=== PATIENT | male | born 1955 | race Caucasian/White ===

== ENCOUNTER 2016-12-16 15:55 | Emergency (ER) | payer BC ==
[2016-12-16] MEDS ORDERED: DIPH/PERTUSS(ACELL)/TETANUS VAC/PF 0.5 ML SYR (>=10YO) IM ONE (16:43)
--- NOTE | 2016-12-16 16:45 | ER Document Report ---
ED Medical Screen (RME) - General Chief Complaint: Laceration Stated Complaint: POSSIBLE CUT ON ANKLE Mode of Arrival: Ambulatory Information source: Patient Notes: 61 y/o M presents to ED c/o left ankle laceration and pain. States struck lower leg on metal bed frame this morning. Denies deformity or color changes. I have greeted and performed a rapid initial assessment of this patient. A comprehensive ED assessment and evaluation of the patient, analysis of test results and completion of the medical decision making process will be conducted by additional ED providers. - Related Data Allergies/Adverse Reactions: No Known Allergies Allergy (Unverified 12/16/16 16:42) Past Medical History Renal/ Medical History: Denies: Hx Peritoneal Dialysis Physical Exam - Vital signs Vitals: Temp Pulse Resp BP Pulse Ox 98.4 F 62 16 145/83 H 98 12/16/16 16:40 12/16/16 16:40 12/16/16 16:40 12/16/16 16:40 12/16/16 16:40 - General General appearance: Appears well, Alert In distress: None Course - Vital Signs Vital signs: Temp Pulse Resp BP Pulse Ox 98.4 F 62 16 145/83 H 98 12/16/16 16:40 12/16/16 16:40 12/16/16 16:40 12/16/16 16:40 12/16/16 16:40
--- NOTE | 2016-12-16 19:55 | ER Document Report ---
ED Wound - General Chief Complaint: Laceration Stated Complaint: POSSIBLE CUT ON ANKLE Mode of Arrival: Ambulatory Information source: Patient - HPI Patient complains to provider of: Laceration Occurred: Just prior to arrival Onset/Duration: Sudden Quality of pain: Sharp Severity: Mild Context: Injury - STRUCK ANKLE AGAINST SHARP CORNER OF METAL BED FRAME. Skin Temperature: Warm Skin Color: Normal Capillary refill: < 3 seconds Sensations intact: Yes Distal pulses present: Yes - DP PULSE STRONG Associated Symptoms: None Notes: Patient describes profuse pulsatile bleeding immediately after injury. Says he put a makeshift bandage on the wound and went to one of the urgent care clinics [facility], where he was told he needed to seek wound repair at the emergency department because of arterial damage. He was given a tetanus booster at the clinic before being transported to the ED by EMS. - Related Data Allergies/Adverse Reactions: No Known Allergies Allergy (Verified 12/16/16 20:33) Past Medical History - General Information source: Patient - Social History Smoking Status: Never Smoker Frequency of alcohol use: Rare Drug Abuse: None Lives with: Family Family History: Reviewed & Not Pertinent Patient has suicidal ideation: No Patient has homicidal ideation: No - Past Medical History Cardiac Medical History: Reports: Hx Hypertension Pulmonary Medical History: Reports: None EENT Medical History: Reports: None Neurological Medical History: Reports: None Endocrine Medical History: Reports: None Renal/ Medical History: Reports: None. Denies: Hx Peritoneal Dialysis Malignancy Medical History: Reports None GI Medical History: Reports: None Musculoskeltal Medical History: Reports None Skin Medical History: Reports None Psychiatric Medical History: Reports: None Surgical Hx: Negative Review of Systems - Review of Systems Constitutional: No symptoms reported EENT: No symptoms reported Cardiovascular: No symptoms reported. denies: Syncope, Lightheaded Respiratory: No symptoms reported Gastrointestinal: No symptoms reported Genitourinary: No symptoms reported Musculoskeletal: No symptoms reported Skin: See HPI Neurological/Psychological: No symptoms reported Physical Exam - Vital signs Vitals: Temp Pulse Resp BP Pulse Ox 98.4 F 65 16 145/83 H 97 12/16/16 16:20 12/16/16 16:20 12/16/16 16:20 12/16/16 16:20 12/16/16 16:20 Interpretation: Hypertensive. No: Tachycardic, Tachypneic - General General appearance: Appears well, Alert In distress: None - HEENT Head: Normocephalic Eyes: Normal Conjunctiva: Normal Ears: Normal Nasal: Normal Mouth/Lips: Normal Mucous membranes: Normal Neck: Normal - Respiratory Respiratory status: No respiratory distress - Cardiovascular Rhythm: Regular - Abdominal Inspection: Normal Distension: No distension - Extremities General upper extremity: Normal inspection General lower extremity: No: Normal inspection - R. ANKLE LAC. (SEE BELOW) Ankle: Laceration - 1.8 cm, TRANSVERSELY OVER DISTAL TIP OF LEFT FIBULA - Neurological Neuro grossly intact: Yes Cognition: Normal Orientation: AAOx4 - Psychological Associated symptoms: Normal affect, Normal mood - Skin Skin Temperature: Warm Skin Moisture: Dry Skin Color: Normal Skin Turgor: Elastic Course - Vital Signs Vital signs: Temp Pulse Resp BP Pulse Ox 97.4 F 61 14 144/94 H 95 12/16/16 21:08 12/16/16 21:08 12/16/16 21:08 12/16/16 21:08 12/16/16 21:08 Procedures - Laceration/Wound Repair Left Ankle Time completed: 20:45 Wound length (cm): 1.8 Wound's Depth, Shape: Superficial Laceration pre-procedure: Betadine prep applied Anesthetic type: 2% Lidocaine Wound explored: Clean, No foreign body removed Irrigated w/ Saline (mLs): 30 Wound Debrided: Minimal Wound Repaired With: Sutures Suture Size/Type: 4:0, Nylon Number of Sutures: 3 - 1 SIMPLE + 1 PAIR HORIZ. MATTRESS Layer Closure?: No Post-procedure wound care: Sterile dressing applied Post-procedure NV exam normal: Yes Complications: No Notes: 12/16/16 20:51 SMALL AMOUNT APPARENT VENOUS BLEEDING NOTED. Adult Front & Back picture: 1 - LACERATION, SUTURED Discharge - Discharge Clinical Impression: Laceration of ankle Qualifiers: Encounter type: initial encounter Laterality: left Qualified Code(s): S91.012A - Laceration without foreign body, left ankle, initial encounter Condition: Stable Disposition: HOME, SELF-CARE Instructions: Laceration Care ([facility]), Soap Cleansing ([facility]), Elevate the Injury ( [facility]) Additional Instructions: STAY OF FEET AND KEEP LEFT LEG ELEVATED MUCH POSSIBLE NEXT 48 HOURS. FOLLOW UP FOR SUTURE REMOVAL IN 10-12 DAYS. RETURN TO E.R. IF PROBLEMS, ANY TIME. Referrals: DEREJE CHOU PA-C [Primary Care Provider] - Follow up as needed
[2016-12-16] MEDS ORDERED: LIDOCAINE 2% INJ (20 MG/ML) 20 ML MDV INJ ONE (20:01)
[2016-12-16 21:14] VITALS: BP 144/94
== END 2016-12-16 21:10 | disposition home or self-care (01) ==
LOC: ER 15:55
PROC: 0HQNXZZ Repair Left Foot Skin, External Approach (ICD-10-PCS; principal; 2016-12-16)
DX: S91.012A Laceration without foreign body, left ankle, initial encounter (principal); W22.03XA Walked into furniture, initial encounter; I10 Essential (primary) hypertension; Z23 Encounter for immunization
CPT/HCPCS: 99283; 73610; 90715; 12001; J3490

== ENCOUNTER 2017-10-09 08:31 | Day surgery (SDC) | payer BC ==
[~2017-10-09 08:31] MED LIST: CHONDR SU A NA/HYALUR INTRAOC KIT (SURGICARE) ONE; KETOROLAC TROMETHAMINE 0.45% 4 DROP/0.4 ML DROPERETTE OS PRN; LIDOCAINE 1% INJ-PF (10 MG/ML) 30 ML SDV ONE; MIDAZOLAM 2 MG/2 ML INJ ONE; PHENYLEPHRINE/KETOROLAC 1%-0.3% 4 ML VIAL ONE; TOBRAMYCIN SULFATE/DEXAMETH OPH OINTMENT 3.5 GM ONE
[2017-10-09] MEDS: TETRACAINE HCL 0.5% OPH SOLN 0.6 ML DROPERETTE OS PRN ×3 (09:24→10:47)
[2017-10-09] MEDS: BESIFLOXACIN HCL 0.6% OPH SUSP 5 ML BOTTLE OS PRN ×3 (09:25→10:47)
[2017-10-09] MEDS: CYCLOPENTOLATE 0.2%/PHENYLEPHRINE 1% OPH SOLN 2 ML OS PRN ×3 (09:25→09:49)
[2017-10-09] MEDS: TROPICAMIDE 1% OPH SOLN 3 ML OS PRN ×3 (09:25→09:49)
[2017-10-09] MEDS ORDERED: MIDAZOLAM 2 MG/2 ML INJ ONE (10:13)
== END 2017-10-09 11:20 | disposition home or self-care (01) ==
LOC: SC 08:31
PROVIDERS: ATTEND Ophthalmology
PROC: 08RK3JZ Replacement of Left Lens with Synthetic Substitute, Percutaneous Approach (ICD-10-PCS; principal; 2017-10-09 09:45)
DX: H25.12 Age-related nuclear cataract, left eye (principal); I10 Essential (primary) hypertension; E78.00 Pure hypercholesterolemia, unspecified; M15.9 Polyosteoarthritis, unspecified; N40.0 Benign prostatic hyperplasia without lower urinary tract symptoms; Z79.1 Long term (current) use of non-steroidal anti-inflammatories (NSAID); Z79.899 Other long term (current) drug therapy; Z87.891 Personal history of nicotine dependence; Z98.41 Cataract extraction status, right eye
CPT/HCPCS: 66984; J2250; J3490 ×3; C9447; 142